=== PATIENT | male | born 1955 | race Caucasian/White ===

== ENCOUNTER → 2020-06-26 | Outpatient (CLI) | payer MEDICARE ==
--- NOTE | 2020-06-26 13:52 | XR ---
EXAMINATION TYPE: XR ankle complete LT DATE OF EXAM: 06/26/2020 COMPARISON: NONE HISTORY: Pain TECHNIQUE: 3 views of the left ankle are submitted for evaluation. 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 There is subchondral sclerosis noted as well in addition to spur formation. Lateral soft tissue swelling noted. There is no evidence for fracture or dislocation IMPRESSION: 1. No evidence for acute fracture.
== END | disposition home or self-care (01) ==
LOC: RADXRYALE 13:12
PROVIDERS: ATTEND Internal Medicine
DX: M25.473 Effusion, unspecified ankle (principal)